=== PATIENT | female | born 1955 | race Caucasian/White ===

== ENCOUNTER 2020-05-17 06:47 | Emergency (ER) | payer MEDICARE, OTHER, SELFPAY ==
[2020-05-17 06:49] VITALS: BP 157/76; PULSE 85; RESP 17; TEMP 36.4; O2SAT 100; BMI 22.6
--- NOTE | 2020-05-17 07:20 | EKG12_ITS ---
Test Reason : Blood Pressure : / mmHG Vent. Rate : 075 BPM Atrial Rate : 075 BPM P-R Int : 148 ms QRS Dur : 076 ms QT Int : 432 ms P-R-T Axes : 079 067 072 degrees QTc Int : 482 ms Normal sinus rhythm Normal ECG Confirmed by JENIFER HUITRON, DASHAWN ([id number]), legal editor JAY VINCENT ([id number]) on 05/20/2020 8:52:08 AM Referred By: BB Confirmed By:DASHAWN BURGESS MD
--- NOTE | 2020-05-17 07:20 | RAD_ITS ---
STUDY: X-RAY CHEST REASON FOR EXAM: Female, 65 years old. N/V/D, SOB ACUTE ON-SET TECHNIQUE: Single AP portable view of the chest. COMPARISON: None. FINDINGS: The lungs are clear and expanded. There is no demonstrated pleural abnormality. Normal size heart. Normal mediastinum and lily. Normal visualized pulmonary arteries. Normal visualized aortic arch and descending thoracic aorta. Normal visualized thoracic spine. Normal visualized ribs, clavicles, and shoulders. There is no demonstrated abnormality of the visualized soft tissue structures of the upper abdomen. RAD/Chest 1 View (Portable) IMPRESSION: Normal x-ray examination of the chest. Electronically Signed: Sonu Butler MD at 8:24 EST Tel , Service support ,
--- NOTE | 2020-05-17 07:22 | ED.DCSUM_ITS ---
History of Present Illness Chief Complaint: Nausea/Vomiting/Diarrhea Informant: Patient, Cost Controller - Abdominal Pain/Flank Pain Onset: Hours - 4-5 Context: Sudden Onset - awoke from sleep w/ nausea Timing: Continuous Current Severity: Mild Maximum Severity: Severe Worsened by: Nothing Relieved by: - - zofran by EMS - Nausea/Vomiting/Emesis GI Symptom: Nausea, Vomiting Onset: Today Quality: Nonbilious. Negative for: Blood streaks, Coffee ground, Hematemesis Severity: Moderate Episodes: 3 - Diarrhea/Melena/Hematochezia GI Symptom: Diarrhea. Negative for: Melena, Hematochezia Onset: Days - 2-3 Stool Quality: Loose. Negative for: Mucous, Black, Maroon, PAUL per rectum Episodes: 5 - per day, approx Associated Symptoms: - - difficult to go just this AM -- seemed like none to urinate out. Negative for: Dysuria, Frequency, Hematuria Narrative: 65-year-old female presents by EMS, she woke up several hours ago with vomiting, then started feeling short of breath. She denies any chest or abdominal pain/discomfort/heaviness or pressure/tightness, but she does have some discomfort up in her shoulders, nowhere else. She has a history of asthma but this does not feel like wheezing/asthma. EMS gave her a DuoNeb, she has no idea if this helped or not but states that she is not as dyspneic as she was prior to getting to the ER. EMS gave her that and some Zofran. Her vital signs were normal except for mild hypertension, and no other testing was done. She does not have a history of diabetes or anything else that she takes medications for except for hormone replacement and she states she periodically has different skin cancers removed from her body and biopsied but she is on no chemotherapy for it. She lives by herself. Patient presents during the national coronavirus emergency declaration/pandemic. Denies any known contact with anyone infected with COVID-19, and denies having had the illness that they know of this past year or so. Denies traveling out of the immediate area recently. She states she chronically has loose bowels but this has been worse. She denies having any melena or red that she has noted. She denies fevers, chills, myalgias, headaches, focal neurologic symptoms, changes in her vision. She states she uses medical marijuana regularly for PTSD and for whenever I have a stomachache. She last used it prior to going to bed last night, denies having any abdominal pain at that time but just used it to help relax and go to bed. - Past Medical History (1) Squamous cell carcinoma of skin Status: Chronic (2) Basal cell carcinoma of skin Status: Chronic (3) Melanoma Status: Chronic (4) Asthma Status: Chronic (5) PTSD (post-traumatic stress disorder) Status: Chronic Past Medical History - Allergies and Home Meds Allergies/Adverse Reactions: Allergies latex Allergy (Verified 05/17/20 06:58) Rash Primary Care Physician: Pattie Campos MD [Primary Care Provider] - Surgical History: appendectomy, cholecystectomy, herniorrhaphy - age 4, hysterectomy - total including ovaries, - - facial plastic reconstructive Lives: Alone Smoking Status: Unknown if ever smoked Drugs: Marijuana Review of Systems General: Reports: Malaise. Denies: Chills, Fever, Sweats Eyes: Denies: Visual changes - bilaterally, Diplopia ENT: Denies: Bilateral ear pain, Rhinorrhea, Sore throat Cardiovascular: Denies: Chest pain, Palpitations, Heart racing Respiratory: Reports: Dyspnea. Denies: Cough, Dyspnea on exertion, Orthopnea Gastrointestinal: Reports: Nausea, Vomiting, Diarrhea. Denies: Abdominal pain, Melena, Hematochezia Genitourinary: Denies: Dysuria, Hematuria, Frequency Musculoskeletal: Reports: Extremity Pain - bilat shoulder/traps only. Denies: Myalgias, Neck pain, Back pain, Swelling Skin: Denies: Rash, Wounds Neurological: Denies: Headache, Weakness, Numbness Physical Exam Vital Signs/Narrative: Vital Signs Temp Pulse Resp BP Pulse Ox 05/17/20 06:49 97.6 F L 85 17 157/76 H 100 Inital Vital Signs reviewed: Yes General: Well nourished, Well developed, No Acute Distress - but appears malaised, tachypneic Head: Normocephalic, Atraumatic Eyes: Perrl, EOMI ENT: Moist mucous membranes, No rhinorrhea, - - POP clear Neck: Supple, Nontender, No lymphadenopathy, No JVD Cardiovascular: Regular rate, Regular rhythm, No murmurs Respiratory: No distress, CTA bilaterally, Chest nontender Abdomen: Soft, Nontender, Nondistended, Normal bowel sounds Back: Nontender, Normal Inspection. Negative for: CVA tenderness Extremities: Nontender, No edema. Negative for: Calf Tenderness Skin: Normal color, No rash, No Trauma Neurological: Alert, Oriented x3, Cranial nerves II-XII grossly intact, Normal Strength, Normal Sensation Psychological: Normal affect, Normal Mood Diagnostic/Tx/Re-eval Impressions Chest X-Ray 05/17/20 07:20 IMPRESSION: Normal x-ray examination of the chest. Electronically Signed: Sonu Butler MD at 8:24 EST Tel , Service support , 05/17/20 07:20 Chest 1 View (Portable) [RAD] Stat 05/17/20 07:40 Mucosa - Nose SARS-CoV-2 Antigen (Rapid) - Final Laboratory Results 05/17/20 05/17/20 05/17/20 06:53 06:53 06:53 WBC 11.8 H RBC 4.42 Hgb 15.7 H Hct 44.5 MCV 100.7 H MCH 35.5 H MCHC 35.3 RDW Std Deviation 41.9 RDW Coeff of Germain 11.4 L Plt Count 311 MPV 10.6 Immature Gran % (Auto) 0.500 Neut % (Auto) 81.9 H Lymph % (Auto) 12.5 L [place] % (Auto) 4.6 Eos % (Auto) 0.2 Baso % (Auto) 0.3 Absolute Neuts (auto) 9.7 H Absolute Lymphs (auto) 1.47 Nucleated RBC % 0 D-Dimer Quant (PE/DVT) 0.33 Sodium Potassium Chloride Carbon Dioxide Anion Gap BUN Creatinine Estim Creat Clear Calc Est GFR (MDRD) Af Amer Est GFR (MDRD) Non-Af BUN/Creatinine Ratio Glucose Lactic Acid Calcium Total Bilirubin AST ALT Alkaline Phosphatase Troponin I < 0.015 B-Natriuretic Peptide Total Protein Albumin Globulin Albumin/Globulin Ratio Urine Color Urine Clarity Urine pH Ur Specific [place] Urine Protein Urine Glucose (UA) Urine Ketones Urine Occult Blood Urine Nitrite Urine Bilirubin Urine Urobilinogen Ur Leukocyte Esterase Urine RBC Urine WBC Ur Squamous Epith Cells Urine Bacteria Urine Mucus POC Glucose 05/17/20 05/17/20 05/17/20 06:53 06:53 07:40 WBC RBC Hgb Hct MCV MCH MCHC RDW Std Deviation RDW Coeff of Germ[place] Plt Count MPV Immature Gran % (Auto) Neut % (Auto) Lymph % (Auto) [place] % (Auto) Eos % (Auto) Baso % (Auto) Absolute Neuts (auto) Absolute Lymphs (auto) Nucleated RBC % D-Dimer Quant (PE/DVT) Sodium 139 Potassium 3.4 L Chloride 107 Carbon Dioxide 21.0 Anion Gap 11 BUN 23 H Creatinine 1.38 H Estim Creat Clear Calc 36.08 Est GFR (MDRD) Af Amer 49 L Est GFR (MDRD) Non-Af 41 L BUN/Creatinine Ratio 16.7 Glucose 134 H Lactic Acid 3.2 H* Calcium 8.9 Total Bilirubin 0.60 AST 19 ALT 26 Alkaline Phosphatase 83 Troponin I B-Natriuretic Peptide 8.5 Total Protein 7.2 Albumin 4.1 Globulin 3.1 Albumin/Globulin Ratio 1.3 Urine Color Urine Clarity Urine pH Ur Specific [place] Urine Protein Urine Glucose (UA) Urine Ketones Urine Occult Blood Urine Nitrite Urine Bilirubin Urine Urobilinogen Ur Leukocyte Esterase Urine RBC Urine WBC Ur Squamous Epith Cells Urine Bacteria Urine Mucus POC Glucose 05/17/20 05/17/20 07:40 07:45 WBC RBC Hgb Hct MCV MCH MCHC RDW Std Deviation RDW Coeff of Germ[place] Plt Count MPV Immature Gran % (Auto) Neut % (Auto) Lymph % (Auto) [place] % (Auto) Eos % (Auto) Baso % (Auto) Absolute Neuts (auto) Absolute Lymphs (auto) Nucleated RBC % D-Dimer Quant (PE/DVT) Sodium Potassium Chloride Carbon Dioxide Anion Gap BUN Creatinine Estim Creat Clear Calc Est GFR (MDRD) Af Amer Est GFR (MDRD) Non-Af BUN/Creatinine Ratio Glucose Lactic Acid Calcium Total Bilirubin AST ALT Alkaline Phosphatase Troponin I B-Natriuretic Peptide Total Protein Albumin Globulin Albumin/Globulin Ratio Urine Color Yellow Urine Clarity Clear Urine pH 8.0 Ur Specific [place] 1.015 Urine Protein Negative Urine Glucose (UA) Normal Urine Ketones 150 H Urine Occult Blood Negative Urine Nitrite Negative Urine Bilirubin Negative Urine Urobilinogen Normal Ur Leukocyte Esterase Negative Urine RBC 0 SEEN Urine WBC 0 SEEN Ur Squamous Epith Cells 0-5 SEEN Urine Bacteria RARE Urine Mucus RARE POC Glucose 111 H - Rhythm Strip Rhythm Strip: Sinus Rhythm Rate: 90 Ectopy: None - EKG Initial EKG Interpretation: Sinus Rhythm - 75, No Acute Injury Pattern, - - Normal EKG Prior: No Prior - Medical Decision Making EKG and troponin/cardiac testing normal. Chest x-ray normal on my interpretation, one view. D-dimer normal ruling out acute pulmonary embolus as cause for her dyspnea. Her lungs are clear and her pulse ox is normal as are her other vital signs on reevaluation after IV fluids and Zofran. She is feeling much better, nausea is gone, she is tolerating oral fluids, and her dyspnea is resolved. I asked her if she felt like she could have been having an anxiety or panic attack. She states maybe, but I have had some of those in the past and they did not seem like this. That certainly is a possibility in my opinion, it is also possible that she had asthma that was treated prior to arrival here, it is not impossible that she had a dysrhythmia that resolved prior to arrival, however she never lost consciousness or felt close, and I doubt a dangerous dysrhythmia occurred here. She has some mild renal insufficiency without anything to compare it to, her potassium was 3.4 and I suspect that is related to shift from an acute respiratory alkalosis and not necessarily from loss, so I do not think it needs to be acutely replaced. At this time she appears well, the rest of her testing is unremarkable including COVID-19 rapid antigen testing, and I feel she can be discharged home with prescription for Zofran, supportive care, close outpatient follow-up and she is comfortable with that plan. ED Disposition - Plan for ED Patient: Disposition: Home or Assisted Living Diagnosis: Gastroenteritis, Dyspnea, Renal insufficiency, mild Instructions: ED Diet for Vomiting or Diarrhea Adult, ED Food Poison Or Gastroenteritis Prescriptions: Ondansetron [Zofran Odt] 8 mg PO Q8H PRN PRN #20 tab PRN Reason: Nausea Prescription Printed Referrals: Pattie Campos MD [Primary Care Provider] - 3-5 Days if not improving
[2020-05-17] MEDS: 0.9% Normal Saline 1,000 ML 999 ML IV (07:51)
[2020-05-17 07:52] VITALS: BP 136/72; PULSE 82; RESP 24; TEMP 36.4; O2SAT 97
[2020-05-17 07:59] LABS: Absolute Lymphocyte Count 1.47 X10^3/uL (0.83-4.51); Absolute Neutrophil Count 9.7 X10^3/uL (2.0-7.7); Basophil# 0.03 X10^3/uL; Basophil% 0.3 % (0-1); Eosinophil# 0.02 X10^3/uL; Eosinophils% 0.2 % (0-5); Hematocrit 44.5 % (37-47); Hemoglobin 15.7 g/dL (12.0-15.0); Lymphocyte # 1.47 X10^3/ul (4.0); Lymphocyte % 12.5 % (19-41); Mean Corp Hgb Conc 35.3 g/dL (32-36); Mean Corpuscular Hgb 35.5 pg (27.0-32.0); Mean Corpuscular Volume 100.7 fL (81-99); Mean Platelet Vol. 10.6 fl (6.2-12.0); Monocyte# 0.54 X10^3/uL; Monocyte% 4.6 % (0-10); NRBC Flagged by Analyzer 0 % (0-5); Neutrophil # 9.68 X10^3/uL (2.7-7.7); Neutrophil % 81.9 % (47-70); Platelet Count 311 K/mm3 (150-450); RBC Distribution Width CV 11.4 % (11.6-14.6); RBC Distribution Width SD 41.9 fl (35.1-43.9); Red Blood Count 4.42 M/mm3 (4.2-5.4); White Blood Count 11.8 K/mm3 (4.4-11.0)
[2020-05-17 08:00] LABS: Bedside Glucose 111 mg/dL (70-110)
[2020-05-17 08:04] LABS: Red Blood Cells-Urine 0 SEEN /hpf (0-5); White Blood Cells 0 SEEN /hpf (0-5)
[2020-05-17 08:07] LABS: Color, Urine Yellow (Yellow); Glucose, Dipstick Normal (Normal); Leukocyte Esterase-Dipstick Negative /ul (Negative); Nitrite-Dipstick Negative (Negative); Occult Blood-Urine Negative /ul (Negative); Protein-Dipstick Negative (Negative); Specific Gravity, Urine 1.015 (1.002-1.030); Urine Bilirubin Dipstick Negative (Negative); Urine Clarity Clear (Clear); Urine Urobilinogen Normal (Normal)
[2020-05-17 08:08] LABS: D-Dimer Quantitative (DVT/PE) 0.33 FEU/ug/m (0.27-0.49)
[2020-05-17 08:13] LABS: Ketone-Dipstick 150 mg/dl (Negative)
[2020-05-17 08:15] LABS: Bacteria RARE /hpf (None Seen); Mucous, Urine RARE /hpf (<or=2+); Squamous Epithelial Cells - UA 0-5 SEEN /hpf (5-10)
[2020-05-17 08:23] LABS: BNP,B-Type NATRIURETIC PEPTIDE 8.5 pg/mL (0-100)
[2020-05-17 08:42] LABS: Lactic Acid 3.2 mmol/L (0.4-1.9)
[2020-05-17 08:56] LABS: ALB/GLOB Ratio 1.3 RATIO (0.9-2.4); AST(SGOT) 19 U/L (15-37); Alanine Aminotransfer ALT/SGPT 26 U/L (13-56); Albumin, Serum 4.1 g/dL (3.2-5.0); Alkaline Phosphatase 83 U/L (45-117); Anion Gap 11 (5-15); BUN 23 mg/dL (7-18); BUN/Creat Ratio 16.7 RATIO (10-20); Calcium,Total 8.9 mg/dL (8.5-10.1); Chloride 107 mmol/L (98-107); Creatinine, Serum 1.38 mg/dL (0.55-1.02); EST Glomerular Filtration Rate 41 mL/min (>60); Est Glom Filt Rate - Afr Amer 49 mL/min (>60); Estimated Creatinine Clearance 36.08 ml/min; Globulin 3.1 g/dL (2.2-4.2); Glucose 134 mg/dL (74-106); Potassium 3.4 mmol/L (3.5-5.1); Protein, Total 7.2 g/dL (6.4-8.2); Sodium Level 139 mmol/L (136-145)
[2020-05-17 09:00] VITALS: BP 119/64; PULSE 88; RESP 16; TEMP 37; O2SAT 96
[2020-05-17 10:00] VITALS: BP 110/61; PULSE 88; RESP 16; TEMP 37; O2SAT 96
[2020-05-17 10:30] VITALS: RESP 15
[2020-05-17 12:03] LABS: Reflex Lactate? Y
== END 2020-05-17 10:45 | disposition home or self-care (01) ==
PROVIDERS: Emergency Provider Emergency Medicine; PCP Internal Medicine
DX: K52.9 Noninfective gastroenteritis and colitis, unspecified (principal); R06.00 Dyspnea, unspecified; N28.9 Disorder of kidney and ureter, unspecified; F32.9 Major depressive disorder, single episode, unspecified; F43.10 Post-traumatic stress disorder, unspecified; Z85.820 Personal history of malignant melanoma of skin; Z79.899 Other long term (current) drug therapy
CPT/HCPCS: 71045; 80053; 81001; 82962; 83605; 83880; 84484; 85025; 85379; 87426; 93005; 96360; 96361; 99285; J7030; A4216

== ENCOUNTER 2021-07-02 21:03 | Emergency (ER) | payer MEDICARE, OTHER, SELFPAY ==
[2021-07-02 21:04] VITALS: BP 145/90; PULSE 107; RESP 18; TEMP 36.7; O2SAT 100; BMI 21.4
[2021-07-02 21:20] LABS: Absolute Lymphocyte Count 1.21 X10^3/uL (0.83-4.51); Absolute Neutrophil Count 5.5 X10^3/uL (2.0-7.7); Basophil# 0.02 X10^3/uL; Basophil% 0.3 % (0-1); Eosinophil# 0.02 X10^3/uL; Eosinophils% 0.3 % (0-5); Hematocrit 45.1 % (37-47); Hemoglobin 16.5 g/dL (12.0-15.0); Lymphocyte # 1.21 X10^3/ul (0.83-4.51); Mean Corp Hgb Conc 36.6 g/dL (32-36); Mean Corpuscular Hgb 36.4 pg (27.0-32.0); Mean Corpuscular Volume 99.6 fL (81-99); Mean Platelet Vol. 10.1 fl (6.2-12.0); Monocyte# 0.84 X10^3/uL; Monocyte% 11.1 % (0-10); NRBC Flagged by Analyzer 0 % (0-5); Neutrophil # 5.46 X10^3/uL (2.7-7.7); Neutrophil % 71.9 % (47-70); Platelet Count 276 K/mm3 (150-450); RBC Distribution Width CV 13.1 % (11.6-14.6); RBC Distribution Width SD 48.2 fl (35.1-43.9); Red Blood Count 4.53 M/mm3 (4.2-5.4); White Blood Count 7.6 K/mm3 (4.4-11.0)
[2021-07-02 21:34] LABS: Anion Gap 11 (5-15); BUN 24 mg/dL (7-18); BUN/Creat Ratio 18.3 RATIO (10-20); Calcium,Total 9.3 mg/dL (8.5-10.1); Chloride 104 mmol/L (98-107); Creatinine, Serum 1.31 mg/dL (0.55-1.02); EST Glomerular Filtration Rate 43 mL/min (>60); Est Glom Filt Rate - Afr Amer 52 mL/min (>60); Estimated Creatinine Clearance 35.99 ml/min; Glucose 121 mg/dL (74-106); Potassium 3.3 mmol/L (3.5-5.1); Sodium Level 139 mmol/L (136-145)
[2021-07-02] MEDS: 0.9% Normal Saline 1,000 ML 999 ML IV ×2 (21:35→23:30)
[2021-07-02] MEDS: proCHLORPERazine 10 MG/2 ML Vial IV (22:40)
--- NOTE | 2021-07-02 22:40 | EDS_ITS ---
HPI History of Present Illness Chief Complaint: Nausea/Vomiting Narrative Narrative: Patient is a 66-year-old female who presents with 2 days of nausea vomiting and diarrhea. Patient states that her daughter and granddaughter have been sick with similar symptoms. Patient states her symptoms began yesterday and she has had 3-5 episodes of loose stool/diarrhea but countless amounts of vomiting. She states that she has Zofran at home and took this as directed but she has had no symptom improvement. She states she has been unable to tolerate any type of food or fluid and with persistent vomiting is concern for dehydration and therefore comes in for evaluation. [facility] Medical History Depression Home Medications ondansetron 8 mg PO Q8H PRN PRN #20 tab 05/17/20 [Rx Last Taken Unknown] paroxetine HCl 30 mg PO DAILY 05/17/20 [History Last Taken Unknown] prochlorperazine maleate [Compazine] 10 mg PO TID PRN #21 tab 07/03/21 [Rx Last Taken Unknown] Allergy/AdvReac Type Severity Reaction Status Date / Time latex Allergy Rash Verified 07/02/21 21:07 Social History Smoking Status: Unknown if ever smoked [facility] ED Constitutional Constitutional ED: Denies chills or fever(s) ENT ENT ED: Reports sore throat Cardiovascular Cardiovascular: Denies chest pain Respiratory/Chest Respiratory/Chest: Denies cough or dyspnea Gastrointestinal Gastrointestinal: Reports abdominal pain, diarrhea, nausea and vomiting Genitourinary Genitourinary ED: Denies dysuria Musculoskeletal Musculoskeletal: Reports myalgias Integumentary Denies rash Neurologic Neurologic: Denies headache(s) Hematologic/Lymphatic Hematologic/Lymphatic: Denies easy bleeding or easy bruising EXAM Physical Exam Const Vital Signs: 07/02/21 21:04 07/02/21 23:24 Temperature 98.0 F Temperature Source Temporal Pulse Rate 107 H Respiratory Rate 18 16 Blood Pressure 145/90 H Blood Pressure Mean 108 Pulse Ox 100 Oxygen Delivery Method Room Air Positive well nourished and well developed General Appearance ED: well developed HEENT Reports dry mucous membranes Mouth ED: Yes dry mucous membranes Mouth: dry mucous membranes Eyes PERRL and EOMs intact bilaterally Neck supple Resp normal respiratory effort and clear to auscultation bilaterally Cardio regular rhythm Rate: tachycardic and other Other Details: Slightly tachycardic rate with regular rhythm. Radial pulses are +2-4 bilaterally are equal and symmetric GI non-distended GI Narrative: Abdomen is soft and nondistended with slightly hyperactive bowel sounds. There is mild diffuse pain with palpation but no voluntary guarding or rigidity. No pulsatile mass or tympany noted Palpation: soft Extremity normal to inspection Neuro oriented x3 and CN's II-XII intact bilaterally Sensorium / Orientation: alert Motor Exam: strength 5/5 throughout Psych Mood & Affect: anxious Skin no rashes or lesions noted Skin Narrative: Skin turgor is increased MDM MDM MDM Narrative Medical decision making narrative: Patient scented to the ER afebrile with a nonsurgical abdomen. She reported family and was at home with similar symptoms and therefore I felt this was most likely viral in nature. As she states she maxwell s not been able to hold food or fluid down for the past 2 days and does have physical exam findings with dehydration there was concern for acute kidney injury. Basic labs were obtained which show a mild elevation to her creatinine but this is actually below her previous value from roughly a year ago. Otherwise are no clinically significant finding. Patient elected perform an acute abdominal series which shows nonspecific bowel gas pattern without air- fluid levels to suggest obstruction. Patient was given 2 L of fluid as well as Compazine and did report resolution of her nausea and was able to tolerate water by mouth and therefore will be discharged home and can follow-up or return to the ER as needed if symptoms persist despite outpatient treatment. Lab Data Attestation: I reviewed the patient's lab results. Labs: Laboratory Results - last 24 hr 07/02/21 07/02/21 07/02/21 21:11 21:11 21:11 WBC 7.6 RBC 4.53 Hgb 16.5 H Hct 45.1 MCV 99.6 H MCH 36.4 H MCHC 36.6 H RDW Std Deviation 48.2 H RDW Coeff of Germain 13.1 Plt Count 276 MPV 10.1 Immature Gran % (Auto) 0.400 Neut % (Auto) 71.9 H Lymph % (Auto) 16.0 L [place] % (Auto) 11.1 H Eos % (Auto) 0.3 Baso % (Auto) 0.3 Absolute Neuts (auto) 5.5 Absolute Lymphs (auto) 1.21 Nucleated RBC % 0 Sodium 139 Potassium 3.3 L Chloride 104 Carbon Dioxide 24.0 Anion Gap 11 BUN 24 H Creatinine 1.31 H Estim Creat Clear Calc 35.99 Est GFR (MDRD) Af Amer 52 L Est GFR (MDRD) Non-Af 43 L BUN/Creatinine Ratio 18.3 Glucose 121 H Calcium 9.3 Total Bilirubin 0.60 Direct Bilirubin 0.16 AST 33 ALT 47 Alkaline Phosphatase 116 Total Protein 7.4 Albumin 4.1 Globulin 3.3 Lipase 73 Radiography Diagnostic Testing: Clinical Impression(s) from Imaging Studies Acute Abdomen Series 07/02/21 22:50 IMPRESSION: COPD. Lungs are clear. Normal bowel gas pattern Electronically Signed: Figueroa Bates DO at 23:20 EST Reading Location ID and State: [facility] / [place] Tel , Service support , Discharge Plan Triage Chief Complaint: Nausea/Vomiting ED Provider: Aakash Rosales Dx/Rx/DC Orders Clinical Impression: Nausea vomiting and diarrhea, Dehydration Instructions: Dehydration, ED Gastroenteritis, Viral (Adult) Prescriptions: New prochlorperazine maleate [Compazine] 10 mg tablet 10 mg PO TID PRN (Reason: nausea and vomiting) Qty: 21 RF: 0 No Action paroxetine HCl 30 MG tablet 30 mg PO DAILY RF: 0 ondansetron 4 MG tablet 8 mg PO Q8H PRN PRN (Reason: Nausea) Qty: 20 RF: 0 Primary Care Provider: Pattie Campos Referrals: Pattie Cmapos MD [Primary Care Provider] - Disposition Disposition: Home, Self Care
--- NOTE | 2021-07-02 22:50 | RAD_ITS ---
STUDY: X-RAY - ACUTE ABDOMINAL SERIES REASON FOR EXAM: Female, 66 years old. abd pain TECHNIQUE: Single view of the chest. Supine, and decubitus view(s) of the abdomen were obtained. COMPARISON: 05/17/2020 FINDINGS: There is hyperinflation of the lungs consistent with chronic obstructive lung disease (COPD). Lungs are clear. Normal size heart. Normal mediastinum and lily. Normal visualized pulmonary arteries. Normal visualized aortic arch and descending thoracic aorta. Normal bowel gas pattern. The soft tissue structures of the abdomen and pelvis are unremarkable. No evidence of free air. Cholecystectomy clips are noted Normal visualized osseous structures. RAD/Acute Abdomen Inc Chest IMPRESSION: COPD. Lungs are clear. Normal bowel gas pattern Electronically Signed: Figueroa Bates DO at 23:20 EST ,
[2021-07-02 23:01] LABS: AST(SGOT) 33 U/L (15-37); Alanine Aminotransfer ALT/SGPT 47 U/L (13-56); Albumin, Serum 4.1 g/dL (3.2-5.0); Alkaline Phosphatase 116 U/L (45-117); Bilirubin, Direct 0.16 mg/dL (0.00-0.30); Globulin 3.3 g/dL (2.2-4.2); Lipase 73 U/L (73-393); Protein, Total 7.4 g/dL (6.4-8.2)
[2021-07-02 23:24] VITALS: RESP 16
== END 2021-07-03 00:29 | disposition home or self-care (01) ==
PROVIDERS: Emergency Provider Emergency Medicine; PCP Internal Medicine; Visit Provider Emergency Medicine
DX: R11.2 Nausea with vomiting, unspecified (principal); R19.7 Diarrhea, unspecified; E86.0 Dehydration; F32.A Depression, unspecified; Z79.899 Other long term (current) drug therapy
CPT/HCPCS: 74022; 80048; 80076; 83690; 85025; 96374; 99284; J7030; A4216

== ENCOUNTER 2022-02-22 10:40 | Emergency (ER) | payer MEDICARE, OTHER, SELFPAY ==
[2022-02-22] VITALS (10 sets, daily range): BP systolic 120–128; BP diastolic 69–90; PULSE 80–102; RESP 10–20; TEMP 35.7; O2SAT 96–100; BMI 22.3
--- NOTE | 2022-02-22 10:51 | EKG12_ITS ---
Test Reason : sob Blood Pressure : / mmHG Vent. Rate : 088 BPM Atrial Rate : 088 BPM P-R Int : 132 ms QRS Dur : 064 ms QT Int : 364 ms P-R-T Axes : 088 074 072 degrees QTc Int : 440 ms Normal sinus rhythm Normal ECG Confirmed by JENIFER HUITRON, DASHAWN ([id number]), news video editor JAY VINCENT ([id number]) on 02/23/2022 9:35:47 AM Referred By: Confirmed By:DASHAWN BURGESS MD
--- NOTE | 2022-02-22 10:51 | RAD_ITS ---
STUDY: X-RAY CHEST REASON FOR EXAM: Female, 66 years old. SOB TECHNIQUE: 2 AP portable views COMPARISON: 07/02/2021 FINDINGS: EKG leads overlie the chest Lungs are hyperexpanded without a superimposed pulmonary process. Normal size heart. Normal mediastinum and lily. Normal visualized pulmonary arteries. Normal visualized aortic arch and descending thoracic aorta. Normal visualized thoracic spine. Normal visualized ribs, clavicles, and shoulders. There is no demonstrated abnormality of the visualized soft tissue structures of the upper abdomen. RAD/Chest 1 View (Portable) IMPRESSION: Hyperexpanded lungs without a superimposed acute pulmonary process Electronically Signed: Janak Cardenas MD at 11:38 EDT ,
--- NOTE | 2022-02-22 10:53 | EX.ED.DYSGE1 ---
HPI History of Present Illness Chief Complaint: Shortness of Breath Narrative Narrative: 66-year-old female presenting with cough, congestion, shortness of breath. These symptoms started approximately 3 days ago. She was seen at urgent care today and sent to the ED. She denies chest pain. Shortness of breath is worsened with exertion. She complains of night sweats, denies fever. Her granddaughter is sick with similar complaints. She is vaccinated for COVID with boosters. Recent Illness/Hospitalization: No PFSH PFSH Medical History (Updated 02/22/22 @ 14:[address] Mona Reynolds MD) Anxiety Depression Skin cancer Home Medications ondansetron 4 mg disintegrating tablet 8 mg PO Q8H PRN PRN Nausea #20 tabs 05/17/20 [Rx Last Taken Unknown] paroxetine HCl 30 mg tablet 30 mg PO DAILY 05/17/20 [History Last Taken Unknown] prochlorperazine maleate 10 mg tablet (Compazine) 10 mg PO TID PRN nausea and vomiting #21 tabs 07/03/21 [Rx Last Taken Unknown] prednisone 20 mg tablet 40 mg PO DAILY #10 tabs 02/22/22 [Rx Last Taken Unknown] Allergy/AdvReac Type Severity Reaction Status Date / Time latex Allergy Rash Verified 02/22/22 10:47 Social History Smoking Status: Unknown if ever smoked ROS ROS ED Constitutional Constitutional ED: Reports chills; Denies fever(s) Eyes Eyes: Denies change in vision ENT ENT ED: Reports rhinorrhea; Denies sore throat Cardiovascular Cardiovascular: Denies chest pain or palpitations Respiratory/Chest Respiratory/Chest: Reports cough, dyspnea and dyspnea on exertion Gastrointestinal Gastrointestinal: Denies abdominal pain, diarrhea, nausea or vomiting Genitourinary Genitourinary ED: Denies dysuria Musculoskeletal Musculoskeletal: Denies neck pain Integumentary Denies rash Neurologic Neurologic: Denies headache(s) Psychiatric Psychiatric: Denies suicidal thoughts EXAM Physical Exam Const Vital Signs: 02/22/22 10:41 02/22/22 10:46 02/22/22 11:07 Temperature 96.2 F L 96.2 F L Temperature Source Temporal Temporal Pulse Rate 102 H 102 H Respiratory Rate 20 H 20 H Respiratory Effort Respiratory Pattern Blood Pressure 120/90 H 120/90 H Blood Pressure Mean 100 100 Pulse Ox 100 100 99 Oxygen Delivery Method Room Air Room Air Room Air 02/22/22 11:07 02/22/22 11:03 02/22/22 11:43 Temperature Temperature Source Pulse Rate 92 90 Respiratory Rate 16 18 Respiratory Effort Short of Breath Respiratory Pattern Tachypnea Blood Pressure Blood Pressure Mean Pulse Ox 99 Oxygen Delivery Method Room Air 02/22/22 12:12 02/22/22 12:37 02/22/22 13:08 Temperature Temperature Source Pulse Rate 96 94 80 Respiratory Rate 18 12 10 L Respiratory Effort Respiratory Pattern Blood Pressure 128/69 H 122/76 H Blood Pressure Mean 88 91 Pulse Ox 99 96 100 Oxygen Delivery Method Room Air Room Air Room Air 02/22/22 14:03 Temperature Temperature Source Pulse Rate 80 Respiratory Rate 18 Respiratory Effort Respiratory Pattern Blood Pressure 126/78 H Blood Pressure Mean 94 Pulse Ox 100 Oxygen Delivery Method Room Air Positive well nourished and well developed General Appearance ED: well developed HEENT Reports normocephalic and head/scalp atraumatic Eyes PERRL and EOMs intact bilaterally Neck supple General: Negative for tenderness Chest Wall inspection of chest normal Resp normal respiratory effort Auscultation: diminished lung sounds Cardio regular rate and regular rhythm GI non-tender and non-distended Palpation: soft; Negative for guarding or rebound tenderness present no CVA tenderness Extremity normal to inspection Neuro oriented x3 Sensorium / Orientation: alert Psych mental status grossly normal Skin no rashes or lesions noted MDM MDM MDM Narrative Medical decision making narrative: Patient was given DuoNeb aerosol. CBC, chemistries were obtained. Creatinine is 1.2, similar to baseline. Troponin is negative. Delta troponin negative. Chest x-ray read by myself and radiology shows hyperexpanded lungs without superimposed acute pulmonary process. RSV positive. Patient is feeling improved on reevaluation. Lung sounds are improved. She states she has albuterol at home. She will be put on short course of prednisone. Advised to follow-up with primary care physician. Advised return to ED for worsening complaints. Lab Data Attestation: I reviewed the patient's lab results. Labs: Laboratory Results - last 24 hr 02/22/22 02/22/22 02/22/22 11:01 11:01 12:59 WBC 5.3 RBC 4.41 Hgb 15.8 H Hct 46.4 MCV 105.2 H MCH 35.8 H MCHC 34.1 RDW Std Deviation 52.0 H RDW Coeff of Germain 13.2 Plt Count 244 MPV 10.1 Immature Gran % (Auto) 0.400 Neut % (Auto) 56.6 Lymph % (Auto) 22.3 [place] % (Auto) 12.4 H Eos % (Auto) 7.5 H Baso % (Auto) 0.8 Absolute Neuts (auto) 3.0 Absolute Lymphs (auto) 1.19 Nucleated RBC % 0 Sodium 139 Potassium 5.1 Chloride 106 Carbon Dioxide 26.0 Anion Gap 7 BUN 20 H Creatinine 1.21 H Estim Creat Clear Calc 38.96 Est GFR (MDRD) Af Amer 57 L Est GFR (MDRD) Non-Af 47 L BUN/Creatinine Ratio 16.5 Glucose 108 H Calcium 9.8 Total Bilirubin 0.50 AST 26 ALT 29 Alkaline Phosphatase 133 H Troponin I High Sens 4 4 Total Protein 7.5 Albumin 3.8 Globulin 3.7 Albumin/Globulin Ratio 1.0 Radiography Chest X-Ray - ED: 1 View, Read by ED Physician, Read by Radiologist and No Acute Disease Diagnostic Testing: Clinical Impression(s) from Imaging Studies Chest X-Ray 02/22/22 10:51 IMPRESSION: Hyperexpanded lungs without a superimposed acute pulmonary process Electronically Signed: Janak Cardenas MD at 11:38 EDT Reading Location ID and State: [facility] / [place] , Service support , EKG Initial EKG: Attestation: I personally reviewed and interpreted this EKG as follows: Interpretation: Sinus Rhythm and No Acute Injury Pattern Discharge Plan Triage Chief Complaint: Shortness of Breath ED Provider: Mona Reynolds Dx/Rx/DC Orders Clinical Impression: Bronchitis, Respiratory syncytial virus (RSV), History of COPD Instructions: ED Bronchitis with Wheezing (Adult) Prescriptions: New prednisone 20 mg tablet 40 mg PO DAILY Qty: 10 0RF No Action paroxetine HCl 30 MG tablet 30 mg PO DAILY ondansetron 4 MG tablet 8 mg PO Q8H PRN PRN (Reason: Nausea) Qty: 20 0RF prochlorperazine maleate [Compazine] 10 mg tablet 10 mg PO TID PRN (Reason: nausea and vomiting) Qty: 21 0RF Primary Care Provider: Pattie Campos Referrals: Pattie Campos MD [Primary Care Provider] - Disposition Disposition: Home, Self Care
[2022-02-22] MEDS: Ipratropium/Albuterol Sulfate 3 ML AMPUL.NEB INHALATION (11:02)
[2022-02-22 11:16] LABS: Absolute Lymphocyte Count 1.19 X10^3/uL (0.83-4.51); Basophil# 0.04 X10^3/uL; Basophil% 0.8 % (0-1); Eosinophils% 7.5 % (0-5); Hematocrit 46.4 % (37-47); Hemoglobin 15.8 g/dL (12.0-15.0); Lymphocyte # 1.19 X10^3/ul (0.83-4.51); Lymphocyte % 22.3 % (19-41); Mean Corp Hgb Conc 34.1 g/dL (32-36); Mean Corpuscular Hgb 35.8 pg (27.0-32.0); Mean Corpuscular Volume 105.2 fL (81-99); Mean Platelet Vol. 10.1 fl (6.2-12.0); Monocyte# 0.66 X10^3/uL; Monocyte% 12.4 % (0-10); NRBC Flagged by Analyzer 0 % (0-5); Neutrophil # 3.02 X10^3/uL (2.7-7.7); Neutrophil % 56.6 % (47-70); Platelet Count 244 K/mm3 (150-450); RBC Distribution Width CV 13.2 % (11.6-14.6); Red Blood Count 4.41 M/mm3 (4.2-5.4); White Blood Count 5.3 K/mm3 (4.4-11.0)
[2022-02-22 11:41] LABS: AST(SGOT) 26 U/L (15-37); Alanine Aminotransfer ALT/SGPT 29 U/L (13-56); Albumin, Serum 3.8 g/dL (3.2-5.0); Alkaline Phosphatase 133 U/L (45-117); Anion Gap 7 (5-15); BUN 20 mg/dL (7-18); BUN/Creat Ratio 16.5 RATIO (10-20); Calcium,Total 9.8 mg/dL (8.5-10.1); Chloride 106 mmol/L (98-107); Creatinine, Serum 1.21 mg/dL (0.55-1.02); EST Glomerular Filtration Rate 47 mL/min (>60); Est Glom Filt Rate - Afr Amer 57 mL/min (>60); Estimated Creatinine Clearance 38.96 ml/min; Globulin 3.7 g/dL (2.2-4.2); Glucose 108 mg/dL (74-106); Potassium 5.1 mmol/L (3.5-5.1); Protein, Total 7.5 g/dL (6.4-8.2); Sodium Level 139 mmol/L (136-145); Troponin-I HS (w/2H Reflex) 4 pg/mL (3.0-54.0)
[2022-02-22 13:08] LABS: Reflex Troponin-HS? (from REC) Y
[2022-02-22 13:30] LABS: Troponin-I HS 4 pg/mL (3.0-54.0)
[2022-02-22] MEDS: predniSONE 20 MG Tablet 60 MG PO (14:19)
== END 2022-02-22 14:27 | disposition home or self-care (01) ==
PROVIDERS: Emergency Provider Emergency Medicine; PCP Internal Medicine; Visit Provider Emergency Medicine
DX: J40 Bronchitis, not specified as acute or chronic (principal); J44.9 Chronic obstructive pulmonary disease, unspecified; B97.4 Respiratory syncytial virus as the cause of diseases classified elsewhere
CPT/HCPCS: 71045; 80053; 84484; 85025; 87633; 87811; 93005; 94640; 99285; A4216

== ENCOUNTER → 2022-04-10 | Outpatient (CLI) | payer MEDICARE, OTHER, SELFPAY ==
--- NOTE | 2022-04-10 | FLU_PTH ---
PATIENT: ESTEFANIA MERCEDES LOC: [facility] U#:[id number] AGE/SX: 67/F ROOM: RE04/10/[address]: Dr. Daniel Quach MD : 1955 BED: DIS: 04/10/2022 SPEC #: [id number] RECD: 04/10/22 16:27 STATUS: AYLA LAISHA #: [id number] SOHAM: 04/10/22 00:[address]: Daniel Quach DEPT: CYTOLOGY RECD BY: Klaudia Da Silva ENTERED: 04/13/22 08:08 SP TYPE: Fluid OTHR DR: Dr. Pattie Campos MD Tissues: A - Thyroid gland, NOS B - Thyroid gland, NOS Procedures: Special Stain Group II Surgery Specimen Level IV Cytospin Fluid Cytology Other HEADER OPERATION: Fine needle aspiration left thyroid PRE-OP DIAGNOSIS: Abnormal thyroid ultrasound TISSUE SUBMITTED: A - FNA left thyroid nodule fluid for cytology, B - FNA left thyroid nodule x12 slides DIAGNOSIS CYTOLOGY A. Left thyroid fluid for cytology, fine needle aspiration (cytospin and cell block): Consistent with benign follicular/colloid nodule with cystic changes ([place] Category II). Adequate for evaluation. See comment. B. Left thyroid, fine needle aspiration (smears): Consistent with benign follicular/colloid nodule with cystic changes ([place] Category II). Adequate for evaluation. See comment. SJ:vero 04/14/2022 COMMENT Correlation with clinical, radiologic findings and appropriate follow up are necessary. CYTOLOGY STUDY Slides are reviewed. CYTOLOGY GROSS A - Received is 30 ml of brown cloudy fluid labeled with the patient's name and and designated per the requisition as left thyroid. Submitted for cytology preparation including cell block. B - Received are 12 smears labeled with the patient's name and designated per the requisition as left thyroid. Submitted for staining. / vero 04/13/2022 TC:5 CPT: 01116 x2, 78226
== END | disposition home or self-care (01) ==
PROVIDERS: PCP Internal Medicine; Visit Provider Surgery
DX: R94.6 Abnormal results of thyroid function studies (principal)
CPT/HCPCS: 88108; 88161; 88305; 88313